=== PATIENT | male | born 1980 | race American Indian/Alaskan Native ===

== ENCOUNTER 2019-05-20 23:00 | Emergency (ER) | payer BC, OTHER ==
[2019-05-20] MEDS ORDERED: ZOFRAN ODT PO ONE (23:37)
[2019-05-20] MEDS ORDERED: IBUPROFEN PO ONE (23:37)
[2019-05-20] MEDS ORDERED: PERCOCET 5/325 PO ONE (23:37)
--- NOTE | 2019-05-20 23:59 | XRay Report ---
LEFT ELBOW SINGLE VIEW, 05/20/2019 INDICATION / CLINICAL INFORMATION: right elbow pain. COMPARISON: None available. FINDINGS: Patient would only allow lateral view. Patient refused all other imaging attempts. On this single view I do not see an obvious fracture or dislocation. However there is suggestion of j oint distention/ hemarthrosis. IMPRESSION: Findings suggest joint distention. If there is history of trauma, this would suggest occu lt fracture and further evaluation with imaging is suggested, if patient will allow. Signer Name: Lilliana He MD Signed: 05/20/2019 11:54 PM Workstation Name: [id number]
--- NOTE | 2019-05-20 23:59 | Emergency Department Report ---
ED Upper Extremity Inj HPI - General Chief Complaint: Extremity Injury, Upper Stated Complaint: RIGHT ELBOW PAIN Time Seen by Provider: 05/20/19 23:30 Source: patient Mode of arrival: Ambulatory Limitations: No Limitations - History of Present Illness Initial Comments: Patient is a 39-year-old -[place] male with no past medical history presents with ED with complaint of acute onset severely painful right elbow with limited range of motion after he tripped and fell down and landed on the right elbow and forearm about 2 hours ago. Patient states that he is unable to perform any active range of motion with the right arm because of severe elbow pain. Patient denies head or neck injury, back pain, loss of consciousness, dizziness, headache, syncope, seizures, numbness and tingling of lower and upper extremities bilaterally, hip pain or chest pain and shortness of breath. MD Complaint: Injury to:: right, elbow, forearm -: Sudden, hour(s) (2) Other Extremity Injury: Elbow: Right (painful, limited ROM due to pain), Forearm: Right Other Injuries: none Handedness: right Place: home Severity scale (0 -10): 8 Improves With: movement Worsens With: movement of extremity Context: fall, direct blow, injury Associated Symptoms: denies other symptoms. denies: weakness, numbness, neck pain, suspects foreign body, nausea/vomiting, heard/felt popping sensat - Related Data Previous Rx's Medication Instructions Recorded Last Taken Type Cyclobenzaprine [Flexeril] 10 mg PO TID PRN #15 tablet 05/21/19 Unknown Rx HYDROcodone/APAP 7.5-325 [[place] 1 each PO Q6HR PRN #12 tablet 05/21/19 Unknown Rx 7.5/325] Ibuprofen [Motrin] 600 mg PO Q8H PRN #20 tablet 05/21/19 Unknown Rx Allergies Allergy/AdvReac Type Severity Reaction Status Date / Time No Known Allergies Allergy Unverified 05/20/19 23:05 ED Review of Systems ROS: Stated complaint: RIGHT ELBOW PAIN Other details as noted in HPI Constitutional: denies: chills, fever Eyes: denies: eye pain, eye discharge, vision change ENT: denies: ear pain, throat pain Respiratory: denies: cough, shortness of breath, wheezing Cardiovascular: denies: chest pain, palpitations Endocrine: no symptoms reported Gastrointestinal: denies: abdominal pain, nausea, diarrhea Genitourinary: denies: urgency, dysuria Musculoskeletal: arthralgia (right shoulder pain), myalgia. denies: back pain, joint swelling Skin: denies: rash, lesions Neurological: denies: headache, weakness, paresthesias Psychiatric: denies: anxiety, depression Hematological/Lymphatic: denies: easy bleeding, easy bruising ED Past Medical Hx - Past Medical History Previous Medical History?: No - Surgical History Past Surgical History?: No - Social History Smoking Status: Current Every Day Smoker Substance Use Type: Marijuana - Medications Home Medications: Home Medications Medication Instructions Recorded Confirmed Last Taken Type Cyclobenzaprine [Flexeril] 10 mg PO TID PRN #15 tablet 05/21/19 Unknown Rx HYDROcodone/APAP 7.5-325 [[place] 1 each PO Q6HR PRN #12 tablet 05/21/19 Unknown Rx 7.5/325] Ibuprofen [Motrin] 600 mg PO Q8H PRN #20 tablet 05/21/19 Unknown Rx ED Physical Exam - General Limitations: No Limitations General appearance: alert, in no apparent distress - Head Head exam: Present: atraumatic, normocephalic, normal inspection - Eye Eye exam: Present: normal appearance, PERRL, EOMI. Absent: scleral icterus, conjunctival injection, nystagmus, periorbital swelling, periorbital tenderness Pupils: Present: normal accommodation - ENT ENT exam: Present: normal exam, normal orophraynx, mucous membranes moist, TM's normal bilaterally, normal external ear exam - Neck Neck exam: Present: normal inspection, full ROM. Absent: tenderness - Respiratory Respiratory exam: Present: normal lung sounds bilaterally. Absent: respiratory distress, wheezes, rales, rhonchi, stridor, chest wall tenderness, accessory muscle use, prolonged expiratory - Cardiovascular Cardiovascular Exam: Present: regular rate, normal rhythm. Absent: systolic murmur, diastolic murmur, rubs, gallop - GI/Abdominal GI/Abdominal exam: Present: soft, normal bowel sounds. Absent: distended, tenderness, guarding, hyperactive bowel sounds, hypoactive bowel sounds, organomegaly - Rectal Rectal exam: Present: deferred - Extremities Exam Extremities exam: Present: normal inspection, tenderness (Palpable right elbow tenderness with limited ROM due to pain), normal capillary refill. Absent: full ROM, joint swelling - Back Exam Back exam: Present: normal inspection, full ROM. Absent: tenderness, CVA tenderness (L), muscle spasm, paraspinal tenderness - Neurological Exam Neurological exam: Present: alert, oriented X3, CN II-XII intact, normal gait, reflexes normal - Psychiatric Psychiatric exam: Present: normal affect, normal mood - Skin Skin exam: Present: warm, dry, intact, normal color. Absent: rash ED Course Vital Signs 05/20/19 05/20/19 23:56 23:59 Respiratory 16 16 Rate - Reevaluation(s) Reevaluation #1: 05/21/19 01:49 Patient is alert and oriented x 3 and is in no acute distress, but in pain. Patient was treated for pain in the ED and right elbow x-ray shows right elbow joint distention consistent with hemarthrosis. It also shows a subtle fracture involving the radial neck without displacement or dislocation. The right elbow and forearm was splinted with posterior long arm splint, and a sling fitted. Patient was discharged home on pain medications and referred to the Orthopedic Surgeon event specialist product demonstrator Dr. Cantu for further evaluation and follow up. Patient was advised to return to the ED immediately if symptoms get worse. ED Medical Decision Making - Radiology Data Radiology results: report reviewed, image reviewed Right elbow x-ray: Shows nondisplaced radial neck fracture with associated hemarthrosis - Medical Decision Making Patient is alert and oriented x 3 and is in no acute distress, but in pain. Patient was treated for pain in the ED and right elbow x-ray shows right elbow joint distention consistent with hemarthrosis. It also shows a subtle fracture involving the radial neck without displacement or dislocation. The right elbow and forearm was splinted with posterior long arm splint, and a sling fitted. Patient was discharged home on pain medications and referred to the Orthopedic Surgeon event specialist product demonstrator Dr. Cantu for further evaluation and follow up. Patient was advised to return to the ED immediately if symptoms get worse. - Differential Diagnosis Right elbow fracture; right forearm contusion; right arm muscle strain Critical care attestation.: If time is entered above; I have spent that time in minutes in the direct care of this critically ill patient, excluding procedure time. ED Disposition Clinical Impression: Sprain of right elbow Qualifiers: Encounter type: initial encounter Qualified Code(s): S53.401A - Unspecified sprain of right elbow, initial encounter Contusion of right elbow and forearm Qualifiers: Encounter type: initial encounter Qualified Code(s): S50.11XA - Contusion of right forearm, initial encounter Nondisplaced fracture of neck of right radius Qualifiers: Encounter type: initial encounter Fracture type: closed Qualified Code(s): S52.134A - Nondisplaced fracture of neck of right radius, initial encounter for closed fracture Disposition: TO HOME OR SELFCARE Is pt being admited?: No Does the pt Need Aspirin: No Condition: Stable Instructions: Elbow Sprain (ED), Elbow Fracture in Adults (ED) Additional Instructions: Take medications with food, drink plenty of fluids and follow-up with your [facility] physician or the orthopedic surgeon Dr. Cantu for further evaluation and treatment. Return to the ed immediately if symptoms get worse. Prescriptions: Cyclobenzaprine [Flexeril] 10 mg PO TID PRN #15 tablet PRN Reason: Muscle Spasm Ibuprofen [Motrin] 600 mg PO Q8H PRN #20 tablet PRN Reason: Pain HYDROcodone/APAP 7.5-325 [[place] 7.5/325] 1 each PO Q6HR PRN #12 tablet PRN Reason: Pain Referrals: SEYMOUR CANTU MD [Staff Physician] - [facility] Time of Disposition: 02:03 Print Language: ZAMBIAN
--- NOTE | 2019-05-21 01:35 | XRay Report ---
RIGHT ELBOW, 4 VIEWS, 05/21/2019 INDICATION / CLINICAL INFORMATION: fall, traumatic injury. COMPARISON: None available. FINDINGS: Joint distention is present consistent with hemarthrosis. There is subtle fracture involving the radi al neck. No displacement. No dislocation. IMPRESSION: Nondisplaced radial neck fracture with associated hemarthrosis. Signer Name: Lilliana He MD Signed: 05/21/2019 1:30 AM Workstation Name: [id number]
[2019-05-21 02:24] VITALS: BP 118/76
== END 2019-05-21 02:25 | disposition home or self-care (01) ==
LOC: ED 23:00
DX: S52.134A Nondisplaced fracture of neck of right radius, initial encounter for closed fracture (principal); S53.401A Unspecified sprain of right elbow, initial encounter; S50.11XA Contusion of right forearm, initial encounter; W01.0XXA Fall on same level from slipping, tripping and stumbling without subsequent striking against object, initial encounter; Y93.89 Activity, other specified; Y92.89 Other specified places as the place of occurrence of the external cause; Y99.8 Other external cause status
CPT/HCPCS: Q0162

== ENCOUNTER 2019-06-01 03:43 | Emergency (ER) | payer SELFPAY ==
[2019-06-01] MEDS ORDERED: TRIPLE ANTIBIOTIC TP ONE ×2 (04:26→04:36)
[2019-06-01] MEDS ORDERED: IBUPROFEN ONE (04:26)
[2019-06-01] MEDS ORDERED: IBUPROFEN PO ONE (04:36)
--- NOTE | 2019-06-01 05:04 | XRay Report ---
RIGHT FOREARM, 2 VIEWS, 06/01/2019 INDICATION / CLINICAL INFORMATION: trauma. COMPARISON: 05/21/2019 FINDINGS: Images were obtained through fiberglass splint. Slight regularity of the neck of the radial head consistent with impaction fracture Is again identified. No acute fractures are demonstrated distally. Signer Name: Jaime Grimes MD Signed: 06/01/2019 5:00 AM Workstation Name: [id number]
[2019-06-01 06:28] VITALS: BP 117/82
--- NOTE | 2019-06-01 08:39 | Emergency Department Report ---
ED General Adult HPI - General Chief complaint: Extremity Injury, Upper Stated complaint: RT ARM PAIN Time Seen by Provider: 06/01/19 08:21 Source: patient Mode of arrival: Ambulatory Limitations: No Limitations - History of Present Illness Initial comments: This is a 39-year-old male presents to ED for elbow pain. Patient states that he had a fracture on May 20 and was placed in a cast. Patient states that yesterday while he was helping his fiance who was having a seizure he felt like he reinjured his elbow. Patient needed to be evaluated Severity scale (0 -10): 0 - Related Data Previous Rx's Medication Instructions Recorded Last Taken Type Cyclobenzaprine [Flexeril] 10 mg PO TID PRN #15 tablet 05/21/19 Unknown Rx HYDROcodone/APAP 7.5-325 [[place] 1 each PO Q6HR PRN #12 tablet 05/21/19 Unknown Rx 7.5/325] Ibuprofen [Motrin] 600 mg PO Q8H PRN #20 tablet 05/21/19 Unknown Rx Allergies Allergy/AdvReac Type Severity Reaction Status Date / Time No Known Allergies Allergy Unverified 05/20/19 23:05 ED Review of Systems ROS: Stated complaint: RT ARM PAIN Other details as noted in HPI ED Past Medical Hx - Past Medical History Previous Medical History?: No - Surgical History Past Surgical History?: No - Social History Smoking Status: Current Every Day Smoker Substance Use Type: Alcohol, Marijuana - Medications Home Medications: Home Medications Medication Instructions Recorded Confirmed Last Taken Type Cyclobenzaprine [Flexeril] 10 mg PO TID PRN #15 tablet 05/21/19 Unknown Rx HYDROcodone/APAP 7.5-325 [[place] 1 each PO Q6HR PRN #12 tablet 05/21/19 Unknown Rx 7.5/325] Ibuprofen [Motrin] 600 mg PO Q8H PRN #20 tablet 05/21/19 Unknown Rx ED Physical Exam - General Limitations: No Limitations ED Course Vital Signs 06/01/19 06/01/19 06/01/19 03:59 04:03 06:27 Temperature 98.9 F 98.9 F Pulse Rate 84 84 99 H Respiratory 18 18 19 Rate Blood Pressure 125/81 Blood Pressure 125/81 117/82 [Left] O2 Sat by Pulse 99 99 97 Oximetry Critical care attestation.: If time is entered above; I have spent that time in minutes in the direct care of this critically ill patient, excluding procedure time. ED Disposition Condition: Stable Referrals: ANNETTE MCKNIGHT MD [Primary Care Provider] - 3-5 Days
--- NOTE | 2019-06-01 08:43 | Emergency Department Report ---
Blank Doc - Documentation Documentation: I went into the patient's room #34 about 8:25 AM patient was not in the room. Patient's family member was available that he mustn't went to the bathroom and back. I told the family member to notify the nurse when patient returns to the room so that he may be evaluated.
== END 2019-06-01 08:40 | disposition left against medical advice (07) ==
LOC: ED 03:43
DX: M79.601 Pain in right arm (principal); Z53.21 Procedure and treatment not carried out due to patient leaving prior to being seen by health care provider
CPT/HCPCS: A6250